=== PATIENT | female | born 1975 | race Caucasian/White ===

== ENCOUNTER → 2019-09-25 08:44 | Outpatient (BNVA) | payer BC, SELFPAY | PROVIDERS: Family Provider Physician Assistant Medical; Visit Provider Nurse Practitioner Family | DX: E11.9 Type 2 diabetes mellitus without complications (principal); E78.2 Mixed hyperlipidemia; E03.9 Hypothyroidism, unspecified; E55.9 Vitamin D deficiency, unspecified | CPT/HCPCS: 80053; 80061; 81003; 82306; 83036; 84443; 85025 ==

== ENCOUNTER 2020-09-03 08:30 | Outpatient (CLI) | payer BC, SELFPAY ==
[2020-09-03 09:14] VITALS: BP 115/78; PULSE 93; TEMP 36.9; O2SAT 86
--- NOTE | 2020-09-03 09:29 | AMB.MCA ---
Patient Information Referred by: Jaya Moyer PA-C Symptom onset date: 08/27/20 COVID 19 common symptoms: positive fever(s), cough, fatigue and body aches Severity: mild Treatment prior to arrival: none Other details: Patient is a 45-year-old female here for BAM infusion. She tested positive for COVID on 08/29/2020 at [facility]. Results were faxed and verified by myself. Patient meets criteria given the fact that she is a diabetic. Risks and benefits of using an experimental drug for treatment of COVID were discussed with patient. She verbalizes understanding and would like to continue with infusion. [facility] COVID test results: No Data to Display outside results available, scanned Criteria/Plan Inclusion/Exclusion Criteria weight >/= 40kg, + direct test </= 10 days ago and symptom onset </= 10 days ago has diabetes not requiring hospitalization, not requiring oxygen (if not chronically on oxygen) and no increase oxygen requirement (if chronically on oxygen) Patient education patient/family/caregiver received/reviewed fact sheet, Emergency Use Authorization/unapproved drug status discussed with patient/family/caregiver, alternatives to this treatment discussed with patient/family/caregiver, risks and benefits of medication reviewed with patient/family/caregiver, patient/family/caregiver given opportunity for questions, which were answered and patient consents to receiving Monoclonal Antibody Treatment Plan for treatment Meets criteria for Monoclonal Antibody infusion Ordering Monoclonal Antibody infusion for today
[2020-09-03 11:14] VITALS: BP 140/79; PULSE 95; O2SAT 90
[2020-09-03 11:59] VITALS: BP 115/83; PULSE 89; TEMP 37.4; O2SAT 90
--- NOTE | 2020-09-11 13:55 | DCPLANNER ---
marketing and promotions manager had message that patient received the monoclonal antibody infusion. Patient was admitted to hospital.
== END 2020-09-03 08:31 | disposition home or self-care (01) ==
LOC: ER 08:32
PROVIDERS: Family Provider Physician Assistant Medical; PCP Physician Assistant Medical; Visit Provider Physician Assistant Medical
DX: U07.1 COVID-19 (principal)

== ENCOUNTER 2020-09-04 12:19 | Inpatient (IN) | payer BC, SELFPAY ==
[2020-09-04] VITALS (10 sets, daily range): BP systolic 110–129; BP diastolic 80–88; PULSE 69–108; RESP 18–24; TEMP 37.1; O2SAT 85–95; BMI 39.1
--- NOTE | 2020-09-04 14:35 | XR_ITS ---
WS: [id number] CHEST XRAY TECHNIQUE: Portable chest. CLINICAL INFORMATION: SOB/COVID COMPARISON: None. FINDINGS: Shallow inspiration. Heart: Cardiomegaly. Lungs: Bilateral mid and lower lung pulmonary infiltrates more prominent at the costophrenic angles. Probable small right pleural effusion. Volume loss right lower lobe. Recommend correlation for COVID pneumonia. Bones: Normal visualized bony structures. XR/XR chest 1V portable [id number] IMPRESSION: 1. Shallow inspiration. 2. Bilateral perihilar mid and lower lung pulmonary infiltrates worse in the r ight lower lobe laterally. Recommend correlation for COVID pneumonia. 3. Volume loss right lower lobe with probable small right pleural effusion.
--- NOTE | 2020-09-04 17:07 | ED_ITS ---
HPI - COVID General: Chief Complaint: Shortness of Breath/Dyspnea Stated Complaint: SOB, COVID SYMPTOMS Time Seen by Provider: 09/04/20 16:42 Triage information: Has fever, cough or shortness of breath . Exposure to COVID + person last 14 days History of Present Illness: HPI Narrative: The patient is a 45-year-old female with past medical history hypertension and diabetes. She has been symptomatic of Covid for the past 8 days and had a positive outpatient test. She received the p.m. infusion yesterday. She says she was satting 86% and they offered her to see a doctor or get a BAM infusion and she chose to get the BAM infusion. She went home and says her pulse oximeter was measuring in the upper 80s during the night and continued today so she came to the ER because she complains of shortness of breath. She says she had been slightly improving as the cough has gone away as well as the headache but she continues to feel fatigued and short of breath which she has been feeling the whole time. MD complaint: known COVID positive Prior covid testing: yes, results known COVID 19 common symptoms: positive dyspnea and fatigue; negative headache(s), throat pain, nasal congestion or diarrhea COVID 19 other sytmptoms: positive requiring oxygen; negative chest pain, respiratory distress or confusion Onset (ago): day(s) (8) Severity: moderate Pertinent comorbid conditions: diabetes Treatment prior to arrival: none COVID Results: No Data to Display Review of Systems General: Reports: 10 or more systems reviewed and unremarkable except in HPI and below Const: Reports: fatigue Eyes: Denies: change in vision, blurry vision or eye redness ENMT: Denies: throat pain, swelling of lips/tongue, ear or mastoid pain or nasal congestion Card: Denies: chest pain, palpitations, irregular heart rhythm, edema, dyspnea on exertion or orthopnea Resp: Reports: dyspnea GI: Denies: abdominal pain, diarrhea or GI cramping : Denies: flank pain, difficulty voiding, urinary frequency or urinary urgency Musc: Denies: neck pain, back pain, extremity pain, joint pain, joint redness, limited range of motion or muscle weakness Skin/Breast: Denies: rash, pruritus, erythema, skin pain or skin tenderness Neuro: Denies: headache(s), numbness in extremities, weakness in extremities, sensory changes, difficulty walking, dizziness, confusion or Slurred speech present Psych: Denies: anxiety or depression Endo: Denies: polyuria All/Imm: Denies: urticaria, throat swelling or tongue swelling PFSH ED PFSH: Medical History (Updated 09/05/20 @ 00:12 by Jose Juan Camarena MD) Diabetes mellitus Hypothyroid Mixed hyperlipidemia Vitamin D deficiency Physical Exam Const: COMMON NORMALS: no acute distress, average body habitus, patient oriented x3, no limitations, healthy appearing, alert and well nourished GENERAL APPEARANCE: cooperative, comfortable, well kempt and well developed ORIENTATION/CONSCIOUSNESS: Yes awake, Yes oriented to person, Yes oriented to place and Yes oriented to time HENMT: COMMON NORMALS: normocephalic, external ears normal and Normal external nose present HEAD & SCALP: normal to inspection and normocephalic NOSE: Normal external nose present EXTERNAL EAR: Yes external ears normal MOUTH: Normal oral and palatal mucosa present THROAT: posterior oropharynx normal Eye: COMMON NORMALS: Equal, round and reactive pupils present and EOMs intact bilaterally GENERAL EYE: appearance normal, both eyes and all related structures PUPIL: Yes Equal, round and reactive pupils present Neck/C-Spine: COMMON NORMALS: full ROM, no lymphadenopathy, no meningeal signs and no JVD GENERAL: Yes normal visual inspection Lymph: LYMPHATIC: no lymphadenopathy noted Chest: COMMONS NORMALS: normal inspection of the chest and normal palpation of entire chest wall Resp: COMMON NORMALS: normal respiratory effort, No retractions, No use of accessory muscles and percussion normal EFFORT & INSPECTION: Yes able to speak in complete sentences and Yes tachypneic AUSCULTATION: diminished lung sounds PERCUSSION: percussion normal Cardio: COMMON NORMALS: no JVD, regular rate, regular rhythm, S1 normal heart sound present, S2 normal heart sound present and Peripheral pulses 2+ throughout RATE: regular rate RHYTHM: regular rhythm HEART SOUNDS: S1 normal heart sound present and S2 normal heart sound present PERIPHERAL PULSES: Peripheral pulses 2+ throughout GI: COMMON NORMALS: Normal to inspection, nondistended, normoactive bowel sounds present, Soft to palpation, non-tender and no masses INSPECTION: Yes normal to inspection PALPATION: Yes Soft to palpation : COMMON NORMALS: Yes no CVA tenderness BLADDER/KIDNEY EXAM: Yes no CVA tenderness Back/Pelvis: COMMON NORMALS: no CVA tenderness, thoracic and lumbar spine normal to inspection, no thoracic nor lumbar tenderness and thoraco-lumbar ROM normal Extremity: COMMON NORMALS: normal to inspection, full ROM, capillary refill normal, no joint enlargement and no pedal edema GENERAL: Yes normal exam except as noted Neuro: COMMON NORMALS: patient oriented x3, CN's II-XII intact bilaterally, moves all extremities, no focal motor deficits, no sensory deficits noted and gait normal SENSORIUM/ORIENTATION: Yes alert, Yes oriented to person, Yes oriented to place and Yes oriented to time MENINGEAL SIGNS: Yes no meningeal signs Psych: COMMON NORMALS: mental status grossly normal, Normal thought process present, cooperative, normal affect and speech normal APPEARANCE: Yes well kempt ATTITUDE: Yes calm SPEECH: Yes normal speech THOUGHT PROCESS: Normal thought process present Skin: COMMON NORMALS: no rashes or lesions noted GENERAL SKIN EXAM: no rashes or lesions noted Course Vital Signs: Vital signs: Vital Signs Temperature 98.7 F 09/04/20 13:40 Pulse Rate 87 09/04/20 23:12 Respiratory Rate 18 09/04/20 23:12 Blood Pressure 110/82 09/04/20 23:12 Pulse Oximetry 85 L 09/04/20 23:13 MDM - COVID MDM Narrative: Medical decision making narrative: Patient came to the ER complaining of shortness of breath requiring 4 L oxygen. She is Covid positive. She is complaining of typical symptoms. She had been stable in the ED requiring 4 L and possibly suggested being discharged however her CRP and ferritin are elevated significantly and Dr. Cooper accepts for admission. Lab Data: Labs: Lab Results 09/04/20 09/04/20 09/04/20 Range/Units 17:48 17:48 17:48 WBC 6.1 (4.0-10.0) 10^3/ uL RBC 5.28 (4.1-5.3) 10^6/u L Hgb 15.4 H (11.5-15.3) g/dL Hct 46.6 (37.0-47.0) % MCV 88.3 (81-99) fL MCH 29.2 (28.0-34.0) pg MCHC 33.0 (30.0-36.0) g/dL RDW 13.8 (12.1-15.1) % Plt Count 162 (130-400) 10^3/c mm MPV 10.8 H (7.4-10.4) fL Neut % (Auto) 60.4 % Lymph % (Auto) 33.8 % Kings % (Auto) 3.9 % Eos % (Auto) 0.0 % Baso % (Auto) 0.3 % Neut # (Auto) 3.69 (1.8-7.7) 10^3/u L Lymph # (Auto) 2.1 (0.8-4.8) 10^3/u L Kings # (Auto) 0.2 (0.2-0.9) 10^3/u L Eos # (Auto) 0.0 (0.0-0.8) 10^3/u L Baso # (Auto) 0.0 (0.0-0.1) 10^3/u L Nucleated RBC % (a uto) 0 % Nucleated RBCs # 0.0 /100WBC D-Dimer 0.58 (0-0.59) ug/mIFE U Sodium 135 L (136-145) mmol/L Potassium 3.6 (3.5-5.1) mmol/L Chloride 93 L (98-107) mmol/L Carbon Dioxide 24 (22-29) mmol/L Anion Gap 21.6 H (5-19) BUN 13 (6-20) mg/dL Creatinine 0.5 (0.5-0.9) mg/dL GFR Calculation 134.0 H (90-130) mL/min Glucose 283 H (65-115) mg/dL Calculated Osmolal ity 290 (285-295) mOsm/k g Calcium 8.1 L (8.5-10.5) mg/dL Ferritin (15-150) ng/mL Total Bilirubin 0.5 (0.15-1.2) mg/dL AST 24 (0-32) U/L ALT 20 (0-33) U/L Alkaline Phosphata se 65 (35-105) IU/L Troponin T Baselin e (0-10) ng/L Troponin T 120 Min picayune (0-10) ng/L Delta Troponin T (0-10) ABS# C-Reactive Protein (0.0-4.9) mg/L NT-Pro-B Natriuret Pep 22 (0-125) pg/mL Total Protein 7.1 (6.6-8.7) g/dL Albumin 3.9 (3.5-5.2) g/dL Globulin 3.2 (1.3-4.6) g/dL 09/04/20 09/04/20 09/04/20 Range/Units 17:48 17:48 20:04 WBC (4.0-10.0) 10^3/ uL RBC (4.1-5.3) 10^6/u L Hgb (11.5-15.3) g/dL Hct (37.0-47.0) % MCV (81-99) fL MCH (28.0-34.0) pg MCHC (30.0-36.0) g/dL RDW (12.1-15.1) % Plt Count (130-400) 10^3/c mm MPV (7.4-10.4) fL Neut % (Auto) % Lymph % (Auto) % Kings % (Auto) % Eos % (Auto) % Baso % (Auto) % Neut # (Auto) (1.8-7.7) 10^3/u L Lymph # (Auto) (0.8-4.8) 10^3/u L Kings # (Auto) (0.2-0.9) 10^3/u L Eos # (Auto) (0.0-0.8) 10^3/u L Baso # (Auto) (0.0-0.1) 10^3/u L Nucleated RBC % (a uto) % Nucleated RBCs # /100WBC D-Dimer (0-0.59) ug/mIFE U Sodium (136-145) mmol/L Potassium (3.5-5.1) mmol/L Chloride (98-107) mmol/L Carbon Dioxide (22-29) mmol/L Anion Gap (5-19) BUN (6-20) mg/dL Creatinine (0.5-0.9) mg/dL GFR Calculation (90-130) mL/min Glucose (65-115) mg/dL Calculated Osmolal ity (285-295) mOsm/k g Calcium (8.5-10.5) mg/dL Ferritin 695 H (15-150) ng/mL Total Bilirubin (0.15-1.2) mg/dL AST (0-32) U/L ALT (0-33) U/L Alkaline Phosphata se (35-105) IU/L Troponin T Baselin e 6 (0-10) ng/L Troponin T 120 Min picayune 6.00 (0-10) ng/L Delta Troponin T 0 (0-10) ABS# C-Reactive Protein 137.2 H (0.0-4.9) mg/L NT-Pro-B Natriuret Pep (0-125) pg/mL Total Protein (6.6-8.7) g/dL Albumin (3.5-5.2) g/dL Globulin (1.3-4.6) g/dL COVID Results: No Data to Display Discharge Plan Discharge Patient Disposition: Admitted As Inpatient Clinical Impression: COVID-19 Condition: Stable Coding Level of Care Code ED Supervisor [employer] for [employer] Fwd Exam Comprehensive
[2020-09-04] MEDS: albuterol 8 gm MDI 2 PUFF INHALATION (17:31)
[2020-09-04 17:54] LABS: Basophils % 0.3 %; Hematocrit 46.6 % (37.0-47.0); Hemoglobin 15.4 g/dL (11.5-15.3); Lymphocytes # 2.1 10^3/uL (0.8-4.8); Lymphocytes % 33.8 %; Mean Corpuscular Hemoglobin 29.2 pg (28.0-34.0); Mean Corpuscular Volume 88.3 fL (81-99); Mean Platelet Volume 10.8 fL (7.4-10.4); Monocytes # 0.2 10^3/uL (0.2-0.9); Monocytes % 3.9 %; Neutrophils # 3.69 10^3/uL (1.8-7.7); Neutrophils % 60.4 %; Nucleated Red Blood Cells % 0 %; Platelet Count 162 10^3/cmm (130-400); Red Blood Count 5.28 10^6/uL (4.1-5.3); Red Cell Distribution Width 13.8 % (12.1-15.1); White Blood Count 6.1 10^3/uL (4.0-10.0)
[2020-09-04 18:11] LABS: D Dimer 0.58 ug/mIFEU (0-0.59)
[2020-09-04 18:23] LABS: Troponin(5th) Baseline 6 ng/L (0-10)
[2020-09-04 18:25] LABS: Alanine Aminotransferase 20 U/L (0-33); Albumin Level 3.9 g/dL (3.5-5.2); Alkaline Phosphatase 65 IU/L (35-105); Anion Gap 21.6 (5-19); Aspartate Amino Transferase 24 U/L (0-32); Blood Urea Nitrogen 13 mg/dL (6-20); Calcium 8.1 mg/dL (8.5-10.5); Carbon Dioxide 24 mmol/L (22-29); Chloride 93 mmol/L (98-107); Globulin 3.2 g/dL (1.3-4.6); Glucose 283 mg/dL (65-115); Osmolality Calculated 290 mOsm/kg (285-295); Potassium 3.6 mmol/L (3.5-5.1); Sodium 135 mmol/L (136-145); Total Bilirubin 0.5 mg/dL (0.15-1.2); Total Protein 7.1 g/dL (6.6-8.7)
[2020-09-04 18:30] LABS: Slide Review Slide Review Perform
--- NOTE | 2020-09-04 18:58 | ECG_ITS ---
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 Measurements Intervals [place] Rate: 99 P: 53 NM: 171 QRS: -42 QRSD: 108 T: 19 QT: 356 QTc: 457 Interpretive Statements SINUS RHYTHM LOW QRS VOLTAGE IN PRECORDIAL LEADS [QRS DEFLECTION < 1.0 mV IN CHEST LEADS] POSSIBLE ANTERIOR MYOCARDIAL INFARCTION [30 ms Q WAVE IN V3/V4, OR R < 0.2 mV IN V4], OF INDETERMINATE AGE INFERIOR MYOCARDIAL INFARCTION [40+ ms Q WAVE AND/OR ST/T ABNORMALITY IN II/aVF], PROBABLY OLD No previous ECG available for comparison Electronically Signed On 09-08-2020 0:39:42 CDT by Evelia Mcrae M.D. [id number]
--- NOTE | 2020-09-04 19:09 | PC.NURSE ---
Report from HARRIS Pinzon
[2020-09-04 20:06] LABS: NT Pro B Type Natriuretic Pept 22 pg/mL (0-125)
[2020-09-04 20:39] LABS: Troponin 5 2HR Delta 0 ABS# (0-10)
--- NOTE | 2020-09-04 21:10 | PC.NURSE ---
Pt given sandwich and snacks. No other needs identified at this time.
--- NOTE | 2020-09-04 23:28 | PC.NURSE ---
NS, dexamethasone and remdesivir were not charted as given in the MAR, however, the meds are shown to have been pulled from the pyxis, and the medication bags and vial are in the patient's room and pt reports she received them.
[2020-09-04 23:53] LABS: C Reactive Protein 137.2 mg/L (0.0-4.9); Ferritin 695 ng/mL (15-150)
[2020-09-05] VITALS (15 sets, daily range): BP systolic 114–168; BP diastolic 63–80; PULSE 83–93; RESP 16–22; TEMP 36.6–36.7; O2SAT 90–94
[2020-09-05 00:52] LABS: Alanine Aminotransferase 17 U/L (0-33); Albumin Level 3.4 g/dL (3.5-5.2); Alkaline Phosphatase 59 IU/L (35-105); Anion Gap 24.1 (5-19); Aspartate Amino Transferase 19 U/L (0-32); Blood Urea Nitrogen 14 mg/dL (6-20); Calcium 7.3 mg/dL (8.5-10.5); Carbon Dioxide 19 mmol/L (22-29); Chloride 96 mmol/L (98-107); Glucose 386 mg/dL (65-115); Osmolality Calculated 296 mOsm/kg (285-295); Potassium 4.1 mmol/L (3.5-5.1); Sodium 135 mmol/L (136-145); Total Bilirubin 0.4 mg/dL (0.15-1.2); Total Protein 6.4 g/dL (6.6-8.7)
[2020-09-05 00:55] LABS: Troponin 5 6HR Delta 0 ng/L (0-12)
--- NOTE | 2020-09-05 01:21 | PM.HP ---
Providers/Chief Complaint Admitting Physician: Jocelyn Cooper MD Primary Care Provider: Jaya Moyer Chief Complaint: SOB, COVID SYMPTOMS History of Present Illness Lroena Rodriguez is a 45 year old female with a past medical history of diabetes mellitus, hyperlipidemia, hypertension diagnosed with COVID-19 on 08/29/2020 at [facility]. She received monoclonal antibody infusion with [facility]ener[facility] on 09/03/2020. He has been monitoring her oxygen at home, presented to the ER after O2 sats dipped to 82% on room air at home. However here she qualified for 4 L/min supplemental O2. On room air she was 80 to 85%, thereafter with O2 she saturating 92%. Initially decision was made to have her return home with oxygen, however her CRP returned elevated at 137 and decision was made to treat her in the hospital since she has multiple comorbidities putting her at risk of progression. She is unvaccinated for COVID-19 Review of Systems General: Reports: 10 or more systems reviewed and unremarkable except in HPI and below Const: Reports: body aches; Denies: fever(s) or chills Eyes: Denies: change in vision, blurry vision or photophobia ENMT: Denies: throat pain, enlarged tonsils, odynophagia or nasal congestion Card: Denies: chest pain, palpitations, irregular heart rhythm, edema, swelling of feet/ankles, lightheadedness, pre-syncope, dyspnea on exertion or orthopnea Resp: Reports: dyspnea and non-productive cough; Denies: productive cough, wheezing, stridor, pain on inspiration, change in phlegm color, hemoptysis or chest congestion GI: Denies: abdominal pain, nausea, vomiting, hematemesis, coffee ground emesis, dysphagia, heartburn, diarrhea, constipation, GI cramping, change in stool character, hematochezia or melena : Denies: flank pain, difficulty voiding, dysuria, urinary frequency, urinary urgency, urinary hesitancy or hematuria Musc: Denies: neck pain, back pain, extremity pain, joint swelling, joint warmth or deformity Neuro: Denies: headache(s), numbness in extremities, weakness in extremities, sensory changes, difficulty walking, frequent falls, dizziness, vertigo, behavioral changes, Slurred speech present or seizure-like activity Psych: Denies: anxiety, depression, suicidal ideation or homicidal ideation Endo: Denies: polyuria, polydipsia, tired all the time, cold intolerance or hot flashes Serafin/Lymph: Denies: easy bruising or easy bleeding Medications/Allergies Home Medications Medication Instructions Recorded Confirmed Last Taken Type insulin syringe-needle U-100 0.3 #200 each 03/08/19 09/04/20 Unknown Rx mL 31 gauge x 5/16 hydrochlorothiazide 25 mg tablet 25 mg PO QAM #30 tab 09/24/19 09/04/20 09/03/20 Rx insulin regular hum U-500 conc 50 unit SUBCUT TID 30 Days #6 ml 03/11/20 09/04/20 09/03/20 Rx insulin syringe-needle U-100 1 mL See Rx Instructions .ROUTE 08/20/20 09/04/20 Unknown Rx 31 gauge x 16 .COMPLEX #200 ea ascorbic acid (vitamin C) [Vitamin 1,000 mg PO DAILY 09/04/20 09/04/20 Unknown History C] aspirin [Aspir-81] 81 mg PO QAM 09/04/20 09/04/20 09/03/20 History atorvastatin 40 mg PO DAILY 09/04/20 09/04/20 09/03/20 History citalopram 40 mg PO BEDTIME 09/04/20 09/04/20 09/03/20 History cranberry extract 250 mg PO DAILY 09/04/20 09/04/20 Unknown History empagliflozin [Jardiance] 25 mg PO QAM 09/04/20 09/04/20 09/03/20 History insulin detemir U-100 [Levemir 50 unit SUBCUT BID 09/04/20 09/04/20 09/03/20 History FlexTouch U-100 Insuln] levothyroxine 112 mcg PO QAM 09/04/20 09/04/20 09/03/20 History metformin 1,000 mg PO BID 09/04/20 09/04/20 09/03/20 History Allergies Allergy/AdvReac Type Severity Reaction Status Date / Time ciprofloxacin [From Cipro] Allergy Intermediate HIVES Verified 09/04/20 17:20 PFSH Acute PFSH: Medical History (Updated 09/05/20 @ 01:27 by Jocelyn Cooper MD) Diabetes mellitus Hypothyroid Mixed hyperlipidemia Vitamin D deficiency Female Reproductive History: Date of last menstrual period: 02/08/12 Vitals/I&O/Wt Last Vital Signs Temp 98.1 F 09/05/20 01:00 Pulse 88 09/05/20 01:00 Resp 19 H 09/05/20 01:00 BP 128/74 09/05/20 01:00 Pulse Ox 90 09/05/20 01:00 Weight last 48 hrs Weight 113.398 kg Physical Exam Narrative: EXAM NARRATIVE: General: No acute distress, AO x3, tachypneic when on room air, saturation varies between 80 to 85% HEENT: PERRLA, pupils bilaterally equal and reactive, pallors not present Chest: Normal vesicular breath sounds, no added sounds, equal good air entry bilaterally CVS: S1-S2 regular, no murmurs, no tachycardia, no gallops, no rubs Abdomen: Soft, nontender, no organomegaly, bowel sounds present Neuro: No focal deficits, no facial deformity, AO x3, power 5/5 in all limbs Extremities: No clubbing edema cyanosis Data : 09/04/20 17:48 09/04/20 17:48 A&P Assessment and plan (1) COVID-19: Status post Regeneron on 09/03/2020 Remdisivir 200mg iv x 1 followed by 100mg iv daily dexamethasone 6mg IVP daily duoneb q6h, budesonide q12h empiric levaquin Flutter valve/spirometer at bedside trend inflammatory markers including CRP, LDH, D dimer, Ferritin Negative D-dimer, low suspicion for PE Supplemental O2 to keep sats greater than 92% Status: Acute (2) Mixed hyperlipidemia: Status: Acute (3) Diabetes mellitus: High-dose insulin sliding scale while inpatient Status: Acute Qualifiers: Diabetes mellitus type: type 2 Diabetes mellitus snf insulin use: with filler leaf cutter long use Diabetes mellitus complication status: without complication Qualified Code(s): E11.9 - Type 2 diabetes mellitus without complications; 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
--- NOTE | 2020-09-05 01:23 | PC.NURSE ---
Received report from Sandie IGLESIAS in ED. Per Sandie patient was given Remdesivir, NS bolus, & Decadron in ED but not scanned. Patient is A & O, has no C/O of pain or other needs at this time. Patient O2 is currently at 92% on 4 L NC. No C/O of shortness of breath. Patient currently refuses to change into gown.
[2020-09-05] MEDS: dexamethasone 4 mg/mL INJ 6 MG IVP ×2 (01:32→22:47)
[2020-09-05] MEDS: enoxaparin 40 mg/0.4 mL Syringe SUBCUT ×2 (01:33→22:46)
[2020-09-05] MEDS: ipratropium-albuterol 3 mL Neb INHALATION ×4 (01:39→20:33)
[2020-09-05 06:36] LABS: Glucose Point of Care 387 mg/dL (70-110)
[2020-09-05] MEDS: budesonide 0.5 mg/2 mL Neb INHALATION ×2 (07:33→20:33)
[2020-09-05 09:01] LABS: D Dimer 0.62 ug/mIFEU (0-0.59)
[2020-09-05 09:08] LABS: C Reactive Protein 117.2 mg/L (0.0-4.9); Lactate Dehydrogenase 362 U/L (135-214)
[2020-09-05 09:09] LABS: Procalcitonin 0.14 ng/mL (0-0.5)
[2020-09-05] MEDS: doxycycline 100 mg Tablet PO ×2 (10:41→18:09)
[2020-09-05] MEDS: pantoprazole DR 40 mg Tablet PO (10:41)
[2020-09-05 13:17] LABS: Glucose Point of Care 444 mg/dL (70-110)
--- NOTE | 2020-09-05 16:45 | P.PN_ITS ---
Subjective Subjective: Interval history: Feeling better on oxygen. Even takes off to go to bathroom and make bed Vitals/I&O/Wt Last Vital Signs Temp 97.9 F 09/05/20 11:15 Pulse 88 09/05/20 16:18 Resp 16 09/05/20 16:18 BP 165/74 09/05/20 11:15 Pulse Ox 90 09/05/20 16:18 09/05/20 09/05/20 09/05/20 06:59 14:59 22:59 Intake Total 240 / 240 Output Total 250 / 250 Balance -250 / -250 240 / 240 Weight last 48 hrs Weight 113.398 kg Physical Exam Narrative: EXAM NARRATIVE: 90% on 5 L while I'm in room H: reg reg no murmur L: diminished in bases, right base with crackles A: obese soft nt/nd nl BS E no pitting edema Data : 09/04/20 17:48 09/04/20 17:48 A&P Assessment and plan (1) COVID-19: Status post Regeneron on 09/03/2020 Remdisivir 200mg iv x 1 followed by 100mg iv daily D2 dexamethasone 6mg IVP daily D2 duoneb q6h, budesonide q12h empiric levaquin Flutter valve/spirometer at bedside trend inflammatory markers including CRP, LDH, D dimer, Ferritin Negative D-dimer, low suspicion for PE Supplemental O2 to keep sats greater than 92% Status: Acute (2) Mixed hyperlipidemia: Status: Acute (3) Diabetes mellitus: hold metformin Ordered Levemir High-dose insulin sliding scale while inpatient Status: Acute Qualifiers: Diabetes mellitus type: type 2 Diabetes mellitus care home insulin use: with long term care pharmacist use Diabetes mellitus complication status: without complication Qualified Code(s): E11.9 - Type 2 diabetes mellitus without complications; 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 (4) Hypoxia: Status: Acute (5) Depression: on hosp formulary Status: Acute (6) Hypothyroid: Status: Acute (7) Vitamin D deficiency: will check Status: Acute Attestations Medical Necessity Statement*: requires 2 MN to treat acute resp failure due to COVID Coding Level of Care Code Acute Group Home Manager for [facility] Fwd Diagnoses COVID-19 U07.1 Mixed hyperlipidemia E78.2 Diabetes mellitus E11.9; Z79.4 Diabetes mellitus type: type 2 Diabetes mellitus care home insulin use: with care home use Diabetes mellitus complication status: without complication Hypoxia R09.02 Depression F32.9 Hypothyroid E03.9 Vitamin D deficiency E55.9
[2020-09-05 17:19] LABS: Glucose Point of Care 356 mg/dL (70-110)
[2020-09-05] MEDS: remdesivir 100 MG in sodium chloride 0.9% (100 ml) 100 ML IV (18:09)
[2020-09-05 18:43] LABS: 25 Hydroxy Vitamin D 21 ng/mL (30-100)
--- NOTE | 2020-09-05 19:00 | PC.NURSE ---
Shift report received from Cristy IGLESIAS. Patient is A & O, resting in bed watching TV, voices no C/O of pain, or other needs at this time.
[2020-09-05 21:31] LABS: Estmated Average Glucose 212
[2020-09-05] MEDS: citalopram 20 mg Tablet 40 MG PO (22:46)
[2020-09-05] MEDS: atorvastatin 40 mg Tablet PO (22:46)
--- NOTE | 2020-09-05 23:06 | PC.NURSE ---
Patient requested 0100 meds lovenox and Decadron be given with her night 2200 meds.
[2020-09-06] VITALS (14 sets, daily range): BP systolic 114–132; BP diastolic 68–77; PULSE 72–98; RESP 17–20; TEMP 36.3–37.1; O2SAT 90–98
[2020-09-06] MEDS: ipratropium-albuterol 3 mL Neb INHALATION ×4 (02:52→23:07)
[2020-09-06] MEDS: aspirin 81 mg EC Tablet PO (05:36)
[2020-09-06] MEDS: levothyroxine 112 mcg Tablet PO (05:36)
[2020-09-06 07:32] LABS: Alanine Aminotransferase 14 U/L (0-33); Albumin Level 3.7 g/dL (3.5-5.2); Alkaline Phosphatase 59 IU/L (35-105); Anion Gap 16.7 (5-19); Aspartate Amino Transferase 12 U/L (0-32); Blood Urea Nitrogen 22 mg/dL (6-20); Calcium 8.5 mg/dL (8.5-10.5); Carbon Dioxide 21 mmol/L (22-29); Chloride 102 mmol/L (98-107); Globulin 3.4 g/dL (1.3-4.6); Glucose 312 mg/dL (65-115); Osmolality Calculated 295 mOsm/kg (285-295); Potassium 4.7 mmol/L (3.5-5.1); Sodium 135 mmol/L (136-145); Total Bilirubin 0.2 mg/dL (0.15-1.2); Total Protein 7.1 g/dL (6.6-8.7)
[2020-09-06 10:18] LABS: Estmated Average Glucose 209; Hemoglobin A1C 8.9 % (4.0-6.0)
[2020-09-06] MEDS: budesonide 0.5 mg/2 mL Neb INHALATION ×2 (10:49→23:07)
[2020-09-06] MEDS: pantoprazole DR 40 mg Tablet PO (11:12)
[2020-09-06] MEDS: ascorbic acid 500 mg Tablet 1000 MG PO (11:12)
[2020-09-06] MEDS: doxycycline 100 mg Tablet PO ×2 (11:12→18:03)
--- NOTE | 2020-09-06 17:10 | PM.PN ---
Subjective Subjective: Interval history: Feeling better again today. Asking about her regular insulin dose. Vitals/I&O/Wt Last Vital Signs Temp 98.4 F 09/06/20 12:00 Pulse 77 09/06/20 16:29 Resp 17 09/06/20 16:23 BP 123/68 09/06/20 16:00 Pulse Ox 94 09/06/20 16:23 09/06/20 09/06/20 09/06/20 06:59 14:59 22:59 Intake Total 100 / 840 740 / 740 Balance 100 / 540 740 / 740 Physical Exam Narrative: EXAM NARRATIVE: Pulse ox improved today 91-94% on 5L H: reg reg no murmur L: diminished in bases, right base with crackles-improved aeration A: obese soft nt/nd nl BS E no pitting edema Data : 09/04/20 17:48 09/06/20 04:45 A&P Assessment and plan (1) COVID-19: Status post Regeneron on 09/03/2020 Remdisivir 200mg iv x 1 followed by 100mg iv daily D2 dexamethasone 6mg IVP daily D3 duoneb q6h, budesonide q12h empiric levaquin Flutter valve/spirometer at bedside Supplemental O2 to keep sats greater than 92% CRP 137, 117. Very high - trending down. Will check tomorrow. Discussed going home on oxygen. Explained I would like to see more improvement of inflammatory marker. she understands. Status: Acute (2) Mixed hyperlipidemia: Status: Acute (3) Diabetes mellitus: hold metformin Ordered Levemir regular insulin not ordered/substituted. Spoke to pharmacy. 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 Status: Acute (5) Depression: on hosp formulary Status: Acute (6) Hypothyroid: Status: Acute (7) Vitamin D deficiency: Level is low. She carries this diagnosis? will replete with 5000 iu daily for 1 month then 1000 per day Status: Acute Attestations Medical Necessity Statement*: Remains on 5 L NC and receiving treatment for COVID requires con't hospitalization Coding Level of Care Code Acute Board Machine Set Up Operator for Chg Fwd Diagnoses COVID-19 U07.1 Mixed hyperlipidemia E78.2 Diabetes mellitus E11.9; Z79.4 Diabetes mellitus type: type 2 Diabetes mellitus exterminator helper termite insulin use: with exterminator helper termite use Diabetes mellitus complication status: without complication Hypoxia R09.02 Depression F32.9 Hypothyroid E03.9 Vitamin D deficiency E55.9
[2020-09-06] MEDS: remdesivir 100 MG in sodium chloride 0.9% (100 ml) 100 ML IV (18:04)
[2020-09-06] MEDS: citalopram 20 mg Tablet 40 MG PO (22:39)
[2020-09-06] MEDS: atorvastatin 40 mg Tablet PO (22:40)
[2020-09-06] MEDS: enoxaparin 40 mg/0.4 mL Syringe SUBCUT (22:53)
[2020-09-06] MEDS: NON-FORMULARY MEDICATION (Insulin Regular Hum U-500 Conc [Humulin R U-500 (Conc) Kwikpen] 50 EACH SUBCUT (22:55)
[2020-09-07] VITALS (10 sets, daily range): BP systolic 121–130; BP diastolic 77–84; PULSE 72–88; RESP 16–20; TEMP 36.3–36.7; O2SAT 87–95
[2020-09-07] MEDS: dexamethasone 10 mg/mL INJ 6 MG IVP (02:57)
[2020-09-07] MEDS: ipratropium-albuterol 3 mL Neb INHALATION ×2 (03:41→08:07)
[2020-09-07] MEDS: aspirin 81 mg EC Tablet PO (06:13)
[2020-09-07] MEDS: levothyroxine 112 mcg Tablet PO (06:13)
[2020-09-07 07:28] LABS: C Reactive Protein 19.9 mg/L (0.0-4.9)
[2020-09-07] MEDS: budesonide 0.5 mg/2 mL Neb INHALATION (07:47)
[2020-09-07] MEDS: cholecalciferol (vitamin D3) 5,000 unit Tablet 5000 UNIT PO (09:06)
[2020-09-07] MEDS: ascorbic acid 500 mg Tablet 1000 MG PO (09:06)
[2020-09-07] MEDS: doxycycline 100 mg Tablet PO (09:06)
[2020-09-07] MEDS: pantoprazole DR 40 mg Tablet PO (09:06)
--- NOTE | 2020-09-07 09:13 | PM.DCS ---
Discharge Providers Date of Admission: 09/05/20 00:42 Date of Discharge: September 07, 2020 Attending Provider at Admission: Jocelyn Cooper MD Attending Provider at Discharge: Oz Gracia DO Primary Care Provider: Jaya Moyer Diagnoses at Discharge Discharge Diagnosis (1) COVID-19: Status: Acute (2) Mixed hyperlipidemia: Status: Acute (3) Diabetes mellitus: Status: Acute Qualifiers: Diabetes mellitus complication status: without complication Diabetes mellitus intermodal dispatcher insulin use: with halfway use Diabetes mellitus type: type 2 Qualified Code(s): E11.9 - Type 2 diabetes mellitus without complications; Z79.4 - group home (current) use of insulin (4) Hypoxia: Status: Acute (5) Depression: Status: Acute (6) Hypothyroid: Status: Acute (7) Vitamin D deficiency: Status: Acute Reason for Visit Reason for Visit: SOB, COVID SYMPTOMS Hospital Course Hospital Course Patient admitted with Covid pneumonia. She required 5 L of oxygen. She maintained this oxygen level for a couple of days while she received the usual care of remdesivir and Decadron as well as inhalers incentive spirometer and Acapella. As expected her blood sugars spike due to the Decadron. This was allowed to be tolerable for short-term. Also noted was a diagnosis of vitamin D deficiency her level was 21 and she was started on vitamin D 5000 international units daily for 1 month in 1999 and daily with a recheck in 3 months. On the day of discharge her CRP went from 117 down to 20. She required only 2 L by nasal cannula. She does qualify for home O2 and she will be discharged in stable and improved condition. Physical Exam Narrative: EXAM NARRATIVE: Pulse ox improved again today to 92% obese, pale H: reg reg no murmur L: diminished in bases, right base with crackles-improved aeration A: obese soft nt/nd nl BS E no pitting edema Discharge Data Data Completed and Pending: Completed Studies During Hospitalization Category Date Time Status XR chest 1V papa ble [id number] Urgent Exams 09/04/20 14:35 Completed Labs from last 24 hours 09/07/20 09/06/20 05:33 04:45 Estimat Average Gl ucose 209 Hemoglobin A1c 8.9 H C-Reactive Protein 19.9 H Vitals: Last Vital Signs Temp 98.0 F 09/07/20 07:33 Pulse 84 09/07/20 08:06 Resp 17 09/07/20 07:47 BP 130/84 09/07/20 07:33 Pulse Ox 91 09/07/20 07:47 Discharge Plan Discharge Patient Disposition: Home Condition: Stable Prescriptions: New doxycycline monohydrate 100 mg Tablet 100 mg PO BID Qty: 14 RF: 0 pantoprazole 40 mg Tablet,Delayed Release (Dr/Ec) 40 mg PO DAILY Qty: 30 RF: 0 cholecalciferol (vitamin D3) 125 mcg (5,000 unit) Tablet 5,000 unit PO DAILY Qty: 30 RF: 0 Decadron 6 mg tablet 6 mg PO DAILY Qty: 8 RF: 0 Continued (DME) insulin syringe-needle U-100 [[facility] [employer]ringes] 0.3 mL 31 gauge x 5/16 syringe See Rx Instructions .ROUTE .MEDSUPPLY Qty: 200 RF: 5 hydrochlorothiazide 25 mg tablet 25 mg PO QAM Qty: 30 RF: 5 Humulin R U-500 (Conc) Kwikpen 500 unit/mL (3 mL) insulin pen 50 unit SUBCUT TID 30 Days Qty: 6 RF: 0 insulin syringe-needle U-100 1 mL 31 gauge x 5/16 syringe See Rx Instructions .ROUTE .COMPLEX Qty: 200 RF: 0 atorvastatin 40 mg tablet 40 mg PO DAILY RF: 0 Vitamin C 1,000 mg Tablet 1,000 mg PO DAILY RF: 0 aspirin 81 mg Tablet,Delayed Release (Dr/Ec) 81 mg PO QAM RF: 0 metformin 1,000 mg tablet 1,000 mg PO BID RF: 0 levothyroxine 112 mcg tablet 112 mcg PO QAM RF: 0 cranberry extract 250 mg Tablet 250 mg PO DAILY RF: 0 citalopram 40 mg tablet 40 mg PO BEDTIME RF: 0 Levemir FlexTouch U-100 Insuln 100 unit/mL (3 mL) insulin pen 50 unit SUBCUT BID RF: 0 Jardiance 25 mg tablet 25 mg PO QAM RF: 0 Discharge Orders: Discharge Order (Routine); Ordered 09/07/20 Ordered By: Oz Gracia Other Ambulatory Orders: DME: Oxygen (Order) Location: None Selected Ordered By: Jose Juan Camarena DME: Oxygen (Order) Location: None Selected Ordered By: Oz Gracia Referrals: Jaya Moyer [Primary Care Provider] - 4-7 days (Please call on Tuesday to schedule an appointment to be seen in 4-7 days. ) Discharge Diet: Diabetic Discharge Activity: Increase activity as tolerated and Return to work/school after cleared by PCP/Specialist Patient Instructions: Doxycycline (By mouth), Dexamethasone (By mouth), Pantoprazole (By mouth), Cholecalciferol (By mouth), Diabetes Mellitus Type 2 in Adults (DC), Hypoxia (GEN), Opioid Safety Activity Restrictions/Additional Instructions: finish decadron. take protonix to cover for peptic ulcer on empty stomach then can eat 1 hour later. Your Vit D level was low at 21. Low normal is 30 however, research shows >50 is best. take 5,000 iu for about a month then 2,000 afterward. recheck in 3 months. vit d will help with mood as well as bone health and sometimes glucose managment. Discharge Attestations Time Spent in Discharge Care*: greater than 30 min Specific Discharge Activities: educating patient, documenting/other paperwork and evaluating patient/reviewing data Quality Metrics Clinical Quality Measures During this hospital stay, did patient experience: None Coding Level of Care Code Acute Chg FW DC note Diagnoses COVID-19 U07.1 Mixed hyperlipidemia E78.2 Diabetes mellitus E11.9; Z79.4 Diabetes mellitus complication status: without complication Diabetes mellitus intermodal dispatcher insulin use: with halfway use Diabetes mellitus type: type 2 Hypoxia R09.02 Depression F32.9 Hypothyroid E03.9 Vitamin D deficiency E55.9
[2020-09-07] MEDS: NON-FORMULARY MEDICATION (Insulin Regular Hum U-500 Conc [Humulin R U-500 (Conc) Kwikpen] 50 EACH SUBCUT (10:56)
[2020-09-07 15:23] LABS: Glucose Point of Care 453 mg/dL (70-110)
[2020-09-07 15:23] LABS: Glucose Point of Care 328 mg/dL (70-110)
[2020-09-07 15:23] LABS: Glucose Point of Care 322 mg/dL (70-110)
[2020-09-07 15:23] LABS: Glucose Point of Care 315 mg/dL (70-110)
[2020-09-08 09:28] LABS: Glucose Point of Care 411 mg/dL (70-110)
[2020-09-08 09:29] LABS: Glucose Point of Care 306 mg/dL (70-110)
[2020-09-08 09:29] LABS: Glucose Point of Care 374 mg/dL (70-110)
[2020-09-08 09:29] LABS: Glucose Point of Care 199 mg/dL (70-110)
[2020-09-08 09:29] LABS: Glucose Point of Care 408 mg/dL (70-110)
--- NOTE | 2020-09-09 12:18 | PC.SOCIAL ---
09/09/20 follow up call made to patient. patient continuing to use O2 at 4L NC and tolerating. c/o increased fatigue and weakness. Patient picked up new prescriptions from pharmacy has full understanding of medications and how she is to be taking them. Follow up appointment made with Marcio scott 09-15 at 1120. Patient made aware of end quarantine date of 09-11.
== END 2020-09-07 14:45 | disposition home or self-care (01) | DRG 177 ==
LOC: ER 09-05 00:12 → MS 2A 09-05 00:42
PROVIDERS: Admitting Provider Student in an Organized Health Care Education/Training Program; Emergency Provider Family Medicine; PCP Physician Assistant Medical; Visit Provider Internal Medicine
DX: U07.1 COVID-19 (principal); J12.82 Pneumonia due to coronavirus disease 2019; J96.91 Respiratory failure, unspecified with hypoxia; E11.9 Type 2 diabetes mellitus without complications; E78.2 Mixed hyperlipidemia; I10 Essential (primary) hypertension; E03.9 Hypothyroidism, unspecified; E55.9 Vitamin D deficiency, unspecified; F32.9 Major depressive disorder, single episode, unspecified; E66.9 Obesity, unspecified; Z68.39 Body mass index [BMI] 39.0-39.9, adult; Z79.4 Long term (current) use of insulin
CPT/HCPCS: 36415; 36416; 71045; 80053; 82306; 82728; 82962; 83036; 83615; 83880; 84145; 84484; 85025; 85378; 86140; 93005; 94640; 94762; 96365; 96372; 99285; J1100; J1650; J1815; J3535; J7626